=== PATIENT | male | born 1965 | race Caucasian/White ===

== ENCOUNTER 2018-03-05 15:05 | Emergency (ER) | payer MEDICAID, OTHER ==
[~2018-03-05] VITALS: Ht 180.3 cm; Wt 113.4 kg
[~2018-03-05 15:05] MED LIST: ABAC1TAB3 PO; AMLO5TAB4 PO; DARU600T2 PO; RITO100C2 PO
--- NOTE | 2018-03-05 15:05 | NUR ---
THIEN RA88 FOR CARDIAC ARREST, ON GOING CPR BY EMS, INITIAL CALL WAS [facility] DUE TO [email or web address], SHOCKED X1 BY EMS. CPR RESUMED ER TEAM - MD, RT, RN TEAM AT . PT WAS PUT ON MONITOR, UNABLE TO OBTAIN V/S. SEE CODE SHEET AND INTERVENTIONS.
[2018-03-05] MEDS ORDERED: EPINEPHRINE (1:10,000) SYRINGE 1 MG/10 ML DISP.SYRIN IVP ONE (15:07)
[2018-03-05] MEDS ORDERED: ETOMIDATE 2 MG/ML VIAL IV ONE (15:07)
--- NOTE | 2018-03-05 15:11 | NUR ---
DR MASTERS PRONOUNCED THE PT'S AT 1511.
--- NOTE | 2018-03-05 15:53 | NUR ---
SPOKE WITH DR PRITESH BUTCHER, HE WILL SIGN THE CERTIFICATE OF THE PT. FAX INFO TO [phone].
--- NOTE | 2018-03-05 16:34 | NUR ---
CALLED [facility] [phone], LEFT A VM, WAITING FOR RETURN CALL.
[2018-03-05 16:55] VITALS: BP 0/0
--- NOTE | 2018-03-05 18:50 | NUR ---
PER DR MASTERS, THIS IS NOT A POLICE CASE. PATIENT COLLAPSED AND HIT HIS HEAD ON THE GROUND.
--- NOTE | 2018-03-05 19:02 | NUR ---
SPOKE WITH YOLANDE HARPER OF [facility], DEPARTMENT OF LANDSCAPE LABORER, AND STATES THAT THE PATIENT IS NOT A LANDSCAPE LABORER'S CASE.
== END 2018-03-05 16:56 | disposition expired ==
LOC: ER 15:06
DX: I46.9 Cardiac arrest, cause unspecified (principal); I10 Essential (primary) hypertension; M19.90 Unspecified osteoarthritis, unspecified site; Z87.442 Personal history of urinary calculi
CPT/HCPCS: A4606; J0171; J3490; Z7610